=== PATIENT | male | born 1985 | race Caucasian/White ===

== ENCOUNTER → 2018-01-07 | Outpatient (CLI) | payer OTHER | LOC: M CARPUL 10:48 | DX: R05 Cough (principal) ==

== ENCOUNTER 2019-10-27 16:21 | Emergency (ER) | payer OTHER ==
[~2019-10-27] VITALS: Ht 190.5 cm; Wt 100.0 kg
[2019-10-27 17:35] LABS: BASO % 0.3 % (0.0-1.0); EOS # 0.1 10^3/uL (0.0-0.5); HEMATOCRIT 44.5 % (42.0-52.0); HEMOGLOBIN 15.3 g/dl (13.5-17.5); LYMPH # 2.1 10^3/uL (1.5-5.0); LYMPH % 22.6 % (24.0-44.0); MEAN CORPUSCULAR HEMOGLOBIN 29.8 pg (27.0-33.0); MEAN CORPUSCULAR HGB CONC 34.4 g/dl (32.0-36.5); MEAN CORPUSCULAR VOLUME 86.6 fl (80.0-96.0); MONO # 0.5 10^3/uL (0.0-0.8); MONO % 5.9 % (0.0-5.0); NEUTROPHILS # 6.4 10^3/uL (1.5-8.5); PLATELET COUNT, AUTOMATED 254 10^3/uL (150-450); RED BLOOD COUNT 5.14 10^6/uL (4.30-6.10); WHITE BLOOD COUNT 9.2 10^3/uL (4.0-10.0)
[2019-10-27 17:59] LABS: BLOOD UREA NITROGEN 13 MG/DL (7-18); CALCIUM LEVEL 8.4 MG/DL (8.5-10.1); CARBON DIOXIDE LEVEL 29 MEQ/L (21-32); CHLORIDE LEVEL 105 MEQ/L (98-107); CK-MB VALUE MASS < 1.0 NG/ML (<3.6); CPK CREATINE PHOSPHOKINASE 249 U/L (39-308); CREATININE FOR GFR 0.83 MG/DL (0.70-1.30); GLOMERULAR FILTRATION RATE > 60.0 (>60); GLUCOSE, FASTING 80 MG/DL (70-100); POTASSIUM SERUM 3.9 MEQ/L (3.5-5.1); SODIUM LEVEL 141 MEQ/L (136-145); TROPONIN I < 0.02 NG/ML (< 0.10)
--- NOTE | 2019-10-27 18:59 | REP ---
Clinical: Chest pain. Comparison: None. Findings: Mediastinum and cardiac silhouette are within normal limits for portable technique. Prominent coarsened perihilar and primarily lower lobe markings may reflect bronchitis with subtle early atelectasis. Correlation is recommended. No discrete focal consolidation. No effusion. No pneumothorax. Skeletal structures intact. Impression: Cannot exclude bronchitis and possible early atelectasis. Electronically Signed by Shailesh Gayle MD 10/27/2019 06:50 P
[2019-10-27] MEDS ORDERED: dexameTHASONE 20 MG/5 ML VIAL (J1100) IV ONE (19:15)
--- NOTE | 2019-10-27 20:02 | ECGEPIP ---
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
[2019-10-27] MEDS ORDERED: IPRATROPIUM 0.5MG/ALBUTEROL 2.5MG INH SOL UD 3ML (DUONEB)(J7620) NEB ONE (20:30)
[2019-10-27 20:56] LABS: INFLUENZA A AMPLIFICATION NEGATIVE (NEGATIVE); INFLUENZA B AMPLIFICATION POSITIVE (NEGATIVE)
[2019-10-27] MEDS ORDERED: PRED20TA PO (21:40)
[2019-10-27] MEDS ORDERED: OSEL75CA PO (21:40)
[2019-10-27] MEDS ORDERED: OSELTAMIVIR PHOSPHATE 75 MG CAP (TAMIFLU) PO ONE (21:45)
[2019-10-27 21:50] VITALS: BP 119/76
== END 2019-10-27 21:51 | disposition home or self-care (01) ==
LOC: M ED 16:21
DX: J11.1 Influenza due to unidentified influenza virus with other respiratory manifestations (principal); J40 Bronchitis, not specified as acute or chronic; J44.9 Chronic obstructive pulmonary disease, unspecified; Z87.891 Personal history of nicotine dependence
CPT/HCPCS: 71045; 80048; 82550; 82553; 84484; 85025; 87502; 93005; 93041; 94760; 96374; 99285; J1100

== ENCOUNTER → 2020-07-05 | Outpatient (REF) | payer OTHER ==
[~2020-07-05] MED LIST: OSEL75CA PO; PRED20TA PO
[2020-07-05 18:36] LABS: BASO # 0.1 10^3/uL (0.0-0.2); BASO % 0.9 % (0.0-1.0); EOS # 0.6 10^3/uL (0.0-0.5); EOS % 8.4 % (0.0-3.0); LYMPH # 2.4 10^3/uL (1.5-5.0); LYMPH % 32.7 % (24.0-44.0); MEAN CORPUSCULAR HEMOGLOBIN 28.9 pg (27.0-33.0); MEAN CORPUSCULAR HGB CONC 32.6 g/dl (32.0-36.5); MEAN CORPUSCULAR VOLUME 88.6 fl (80.0-96.0); MONO # 0.6 10^3/uL (0.0-0.8); NEUTROPHILS # 3.7 10^3/uL (1.5-8.5); NEUTROPHILS % 49.7 % (36.0-66.0); PLATELET COUNT, AUTOMATED 280 10^3/uL (150-450); RED BLOOD COUNT 5.19 10^6/uL (4.30-6.10); WHITE BLOOD COUNT 7.4 10^3/uL (4.0-10.0)
[2020-07-08 19:07] LABS: D001-IgE D pteronyssinus <0.10 kU/L (Class 0); E001-IgE Cat Epith/Dander < 0.10 kU/L (Class 0); E005-IgE Dog Dander < 0.10 kU/L (Class 0); G002-IgE Bermuda Grass < 0.10 kU/L (Class 0); G008-IgE Kentucky Bluegrass < 0.10 kU/L (Class 0); M001-IgE Penicillium chrysogen < 0.10 kU/L (Class 0); M002 IgE Cladosporium herbaru < 0.10 kU/L (Class 0); M003 IgE Aspergillus fumigatu < 0.10 kU/L (Class 0); M006-IgE Alternaria alternata < 0.10 kU/L (Class 0); T001-IgE Maple/Box Elder < 0.10 kU/L (Class 0); T003-IgE Common Silver Birch < 0.10 kU/L (Class 0); T006-IgE Cedar, Mountain < 0.10 kU/L (Class 0); T007-IgE Oak, White < 0.10 kU/L (Class 0); T008-IgE Elm, American < 0.10 kU/L (Class 0); T015-IgE Ash, White < 0.10 kU/L (Class 0); T041-IgE Hickory, White < 0.10 kU/L (Class 0); T070-IgE White Mulberry < 0.10 kU/L (Class 0); W001-IgE Ragweed, Short < 0.10 kU/L (Class 0); W009-IgE Plantain, English < 0.10 kU/L (Class 0); W014-IgE Pigweed, Rough < 0.10 kU/L (Class 0); W018-IgE Sheep Sorrel < 0.10 kU/L (Class 0)
== END ==
LOC: M LAB REF 17:03
PROVIDERS: ATTEND Nurse Practitioner Adult Health
DX: J45.50 Severe persistent asthma, uncomplicated (principal)

== ENCOUNTER → 2021-05-06 | Outpatient (CLI) | payer OTHER ==
--- NOTE | 2021-05-15 20:04 | SLEEPCENT ---
NOCTURNAL POLYSOMNOGRAPHY DATE: 05/06/2021 ORDERED BY: Kaylene Owens NP Nocturnal polysomnography was performed for evaluation of sleep physiology in this patient with a history of excessive somnolence and nonrestorative sleep. 8 hours and 42 minutes of data were reviewed. There were 315.5 minutes of sleep identified. Sleep latency was mildly prolonged at 25 minutes. REM latency was short at 48 minutes. Sleep architecture was fair. There was a prolonged period of wake between 12:45 and 3:30 resulting in a reduced sleep efficiency of 61%. The electrocardiogram showed a sinus rhythm with an average heart rate of 58 beats per minute. EEG showed reasonably normal waveforms for wake and sleep. There were 43 respiratory events identified of 10 seconds in duration or greater for an apnea-hypopnea index of 8.2. The events were primarily obstructive and not exclusive to sleep stage nor position. Arousals from respiratory events occurred 2.7 times per hour and oxygen desaturations were seen below 90%. There was some activity in the limb leads late in the study. Limb movement arousal index was only 3. IMPRESSION: Obstructive sleep apnea syndrome (G47.33), apnea-hypopnea index 8.2. RECOMMENDATION: The patient should be encouraged to return to [facility]. In the interim, alcohol and sedative avoidance should be practiced and caution exercised during the operation of motor vehicles.
== END ==
LOC: M SLEEP 20:02
PROVIDERS: ATTEND Nurse Practitioner Adult Health
DX: G47.33 Obstructive sleep apnea (adult) (pediatric) (principal)

== ENCOUNTER → 2021-06-15 | Outpatient (CLI) | payer OTHER ==
--- NOTE | 2021-06-17 06:03 | SLEEPCENT ---
DATE: 06/15/2021 ORDERED BY: Kaylene Owens Nocturnal polysomnography was performed for the titration of pressure therapy in this patient with obstructive sleep apnea syndrome, apnea-hypopnea index of 8.2. For testing, patient was fit with a ResMed AirFit F20 full-face mask of medium size. There was 4 cm of water pressure applied to the circuit, and the lights were extinguished. There was 7 hours and 59 minutes of data reviewed. There were 456.5 minutes of sleep identified. Sleep latency was normal at 9 minutes. REM latency was normal at 73 minutes. Sleep architecture was good with four REM cycles. Overall sleep efficiency was 96.2%. The electrocardiogram showed a sinus rhythm with an average heart rate of 56 beats per minute. EEG shows normal waveforms for wake and sleep. Respiratory events were fully palliated with CPAP at a pressure of +9, and remaining measures of sleep physiology were normal. IMPRESSION: Obstructive sleep apnea syndrome (G47.33). RECOMMENDATION: Nightly use of pressure therapy, (1:12) (ended)/verified/ml
== END ==
LOC: M SLEEP 20:00
PROVIDERS: ATTEND Nurse Practitioner Adult Health
DX: G47.33 Obstructive sleep apnea (adult) (pediatric) (principal)

== ENCOUNTER → 2021-06-22 | Outpatient (REF) ==
--- NOTE | 2021-06-22 11:17 | REP ---
INDICATION: PAIN/SOB COMPARISON: None. TECHNIQUE: AP, lateral and sunrise views of the right knee FINDINGS: Osseous structures, joint spaces, and surrounding soft tissues are normal. No overt arthritic changes. No acute fracture or dislocation. No obvious effusion. IMPRESSION: Normal right knee radiographs. <Electronically signed by Shailesh Gayle > 06/22/21 [id number]
--- NOTE | 2021-06-22 11:18 | REP ---
INDICATION: PAIN/SOB COMPARISON: 10/27/2019 TECHNIQUE: PA and lateral. FINDINGS: The mediastinum and cardiac silhouette are normal. The lung wagoner are clear and without acute consolidation, effusion, or pneumothorax. The skeletal structures are intact and normal. IMPRESSION: No acute cardiopulmonary process. <Electronically signed by Shailesh Gayle > 06/22/21 1110
== END ==
LOC: M PLAIMG 10:45
PROVIDERS: ATTEND Internal Medicine
DX: Z00.00 Encounter for general adult medical examination without abnormal findings (principal)